=== PATIENT | male | born 1970 | race American Indian/Alaskan Native ===

== ENCOUNTER 2020-01-25 18:30 | Emergency (ER) | payer BC, OTHER ==
[2020-01-25 20:02] LABS: ANION GAP 11.3 mEq/L (7-13); CHLORIDE,CL 107 mmol/L (98-107); SODIUM,NA 143 mmol/L (136-145)
--- NOTE | 2020-01-25 21:13 | EDM.PDOC ---
ED HPI GENERAL MEDICAL PROBLEM - General Chief Complaint: Gastrointestinal Problem Stated Complaint: PAIN UNDER STERNUM, PASSED OUT FROM SEVERE PAIN Time Seen by Provider: 01/25/20 20:15 Source of Information: Reports: Patient, RN History Limitations: Reports: No Limitations - History of Present Illness INITIAL COMMENTS - FREE TEXT/NARRATIVE: 49 year old with PMH of HTN and new diabetes diagnosis who present to the ER with complaints of epigastric pain. He reports symptoms began about one hour prior to ER visit. He states he was faint and diaphoretic with the epigastric pain. When he burped, his epigastric pain resolved. He states he came in for an evaluation because he was diaphoretic. Denies any history of angina or CT. Denies CP, SOB, fevers, chills, and palpitations. States he has had two episode similar to what happened today and just had to lay down for a while for it to resolved. Today he tried and it did not, but burping helped. denies any diarrhea, constipation, N/V or bloody stools. - Related Data Allergies Allergy/AdvReac Type Severity Reaction Status Date / Time No Known Allergies Allergy Verified 01/25/20 19:19 Home Meds: Home Meds lisinopriL [Prinivil] 20 mg PO DAILY 01/25/20 [History] Past Medical History Cardiovascular History: Reports: High Cholesterol, Hypertension Gastrointestinal History: Reports: Cholelithiasis - Past Surgical History GI Surgical History: Reports: Cholecystectomy Social & Family History - Family History Family Medical History: Noncontributory - Tobacco Use Smoking Status *Q: Never Smoker - Caffeine Use Caffeine Use: Reports: Coffee - Recreational Drug Use Recreational Drug Use: No ED ROS GENERAL - Review of Systems Review Of Systems: Comprehensive ROS is negative, except as noted in HPI. ED EXAM, GI/ABD - Physical Exam Exam: See Below Exam Limited By: No Limitations General Appearance: Alert, WD/WN, No Apparent Distress Throat/Mouth: Normal Inspection, Normal Lips, Normal Teeth, Normal Gums, Normal Oropharynx, Normal Voice, No Airway Compromise Neck: Normal Inspection, Supple, Non-Tender, Full Range of Motion Respiratory/Chest: No Respiratory Distress, Lungs Clear, Normal Breath Sounds, No Accessory Muscle Use, Chest Non-Tender Cardiovascular: Normal Peripheral Pulses, Regular Rate, Rhythm, No Edema, No Gallop, No JVD, No Murmur, No Rub GI/Abdominal Exam: Normal Bowel Sounds (Male) Exam: Deferred Rectal (Males) Exam: Deferred Back Exam: Normal Inspection Extremities: Normal Inspection, Normal Range of Motion, Non-Tender, No Pedal Edema Neurological: Alert, Oriented Psychiatric: Normal Affect, Normal Mood Skin Exam: Warm Lymphatic: No Adenopathy Course - Vital Signs Last Recorded V/S: Last Vital Signs Temp 98.1 F 01/25/20 19:33 Pulse 88 01/25/20 19:33 Resp 18 01/25/20 19:33 BP 133/92 H 01/25/20 19:33 Pulse Ox 100 01/25/20 19:33 - Orders/Labs/Meds Orders: Active Orders 24 hr Category Date Time Status EKG Documentation Completion [RC] ROUTINE Care 01/25/20 19:25 Active Labs: Laboratory Tests 01/25/20 01/25/20 Range/Units 19:35 19:35 WBC 7.4 (5.0-10.0) 10^3/uL RBC 4.74 (4.6-6.2) 10^6/uL Hgb 13.9 L (14.0-18.0) g/dL Hct 42.5 (40.0-54.0) % MCV 89.7 (80-100) fL MCH 29.3 (27.0-34.0) pg MCHC 32.7 L (33.0-35.0) g/dL Plt Count 180 (150-450) 10^3/uL Sodium 143 (136-145) mmol/L Potassium 4.3 (3.5-5.1) mmol/L Chloride 107 (98-107) mmol/L Carbon Dioxide 29 (21-32) mmol/L Anion Gap 11.3 (7-13) mEq/L BUN 21 H (7-18) mg/dL Creatinine 1.37 H (0.70-1.30) mg/dL Est Cr Clr Drug Dosing 74.52 mL/min Estimated GFR (MDRD) 55 BUN/Creatinine Ratio 15.3 (No establ ref range) Glucose 99 (74-99) mg/dL Calcium 8.7 (8.5-10.1) mg/dL Total Bilirubin 1.2 H (0.2-1.0) mg/dL AST 28 (15-37) U/L ALT 29 (16-63) U/L Alkaline Phosphatase 51 (46-116) U/L Troponin I < 0.017 (0.000-0.056) ng/mL Total Protein 7.5 (6.4-8.2) g/dL Albumin 4.1 (3.4-5.0) g/dL Globulin 3.4 Albumin/Globulin Ratio 1.2 Amylase 41 (25-115) U/L Lipase 82 (73-393) U/L - Re-Assessments/Exams Free Text/Narrative Re-Assessment/Exam: Review exam findings, labs and ekg results with Patient. He denies having any pain at this time. Encouraged to follow up with PCP for kidney reassessment. Departure - Departure Time of Disposition: 21:04 Disposition: Home, Self-Care 01 Condition: Good Clinical Impression: GERD (gastroesophageal reflux disease) Qualifiers: Esophagitis presence: without esophagitis Qualified Code(s): K21.9 - Gastro- esophageal reflux disease without esophagitis - Discharge Information Instructions: Food Choices for Gastroesophageal Reflux Disease, Adult, [id number] Additional Instructions: Encouraged to pickup Tums for acid reflux. follow up with PCP for kidney exam recheck. Sepsis Event Note (ED) - Evaluation Sepsis Screening Result: No Definite Risk - Focused Exam Vital Signs: Vital Signs Temp Pulse Resp BP Pulse Ox 01/25/20 19:33 98.1 F 88 18 133/92 H 100 - My Orders Last 24 Hours: My Active Orders 01/25/20 19:25 EKG Documentation Completion [RC] ROUTINE - Assessment/Plan Last 24 Hours: My Active Orders 01/25/20 19:25 EKG Documentation Completion [RC] ROUTINE
== END 2020-01-25 21:13 | disposition home or self-care (01) ==
LOC: DL.ED 18:30
DX: K21.9 Gastro-esophageal reflux disease without esophagitis (principal); I10 Essential (primary) hypertension; E11.9 Type 2 diabetes mellitus without complications; Z79.899 Other long term (current) drug therapy
CPT/HCPCS: 36415; 80053; 82150; 83690; 84484; 85027; 93005; 99284-25

== ENCOUNTER 2020-04-22 18:22 | Observation (INO) | payer OTHER, BC ==
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
[2020-04-22] MEDS ORDERED: fentaNYL 100 MCG/2 ML SDV IVPUSH ONE ×2 (18:56→19:26)
[2020-04-22 19:09] LABS: ANION GAP 13.3 mEq/L (7-13); CHLORIDE,CL 101 mmol/L (98-107); SODIUM,NA 140 mmol/L (136-145)
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
[2020-04-22] MEDS ORDERED: Sodium Chloride 0.9% 1,000 ML IV ONE (19:49)
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
[2020-04-22] MEDS ORDERED: Ondansetron 4 MG/2 ML SDV IVPUSH PRN (21:25)
[2020-04-22] MEDS ORDERED: Ondansetron 4 MG Tab.DIS PO PRN (21:25)
[2020-04-22] MEDS ORDERED: Morphine 2 MG/ML SYRINGE IVPUSH PRN (21:25)
[2020-04-22] MEDS ORDERED: Acetaminophen 325 MG Tab PO PRN (21:25)
[2020-04-22] MEDS ORDERED: Ibuprofen 600 MG Tab PO PRN (21:25)
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
[2020-04-22] MEDS: oxyCODONE 5 MG Tab PO PRN (22:03)
[2020-04-23 06:34] LABS: ANION GAP 11.8 mEq/L (7-13); CHLORIDE,CL 104 mmol/L (98-107); SODIUM,NA 138 mmol/L (136-145)
[2020-04-23] MEDS: oxyCODONE 5 MG Tab PO PRN (08:02)
[2020-04-23] MEDS ORDERED: Iopamidol 612 MG/ML 100 ML Bottle IVPUSH ONE (08:54)
[2020-04-23] MEDS ORDERED: Lisinopril 20 MG Tab PO SCH (09:00)
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
== END 2020-04-23 10:47 | disposition home or self-care (01) ==
LOC: DL.ED 18:22 → DL.MS 20:31
PROVIDERS: ADMIT Internal Medicine; ATTEND Internal Medicine
DX: R52 Pain, unspecified (principal); S22.31XA Fracture of one rib, right side, initial encounter for closed fracture; J98.11 Atelectasis; V86.59XA Driver of other special all-terrain or other off-road motor vehicle injured in nontraffic accident, initial encounter; I10 Essential (primary) hypertension; Z20.828 Contact with and (suspected) exposure to other viral communicable diseases
CPT/HCPCS: 36415; 70450; 71045; 71260; 72125; 72170; 80048; 80053; 80305; 80307; 81001; 82550; 82553; 83605; 83735; 84100; 85025; 85027; 87635; 93005; 96374; 96376; 99285; A9270; J3010; J7030; Q9967; G0378; U0002

== ENCOUNTER 2022-02-27 18:01 | Emergency (ER) | payer BC, OTHER | END 2022-02-27 20:21 | disposition home or self-care (01) | LOC: DL.ED 18:01 | DX: S61.214A Laceration without foreign body of right ring finger without damage to nail, initial encounter (principal); W26.8XXA Contact with other sharp object(s), not elsewhere classified, initial encounter; Z23 Encounter for immunization | CPT/HCPCS: 12002; 90471; 99282-25 ==

== ENCOUNTER 2022-06-17 20:42 | Emergency (ER) | payer BC, OTHER ==
[2022-06-17] MEDS ORDERED: Sodium Chloride 0.9% 10 ML Syringe FLUSH PRN (21:07)
[2022-06-17 21:44] LABS: ANION GAP 7.4 mEq/L (7-13); CHLORIDE,CL 106 mmol/L (98-107); SODIUM,NA 143 mmol/L (136-145)
[2022-06-17 21:45] LABS: ESTIMATED GFR 65 mL/min (>=60)
[2022-06-17] MEDS ORDERED: Sodium Chloride 0.9% 1,000 ML IV ONE ×2 (21:51→22:35)
[2022-06-17] MEDS ORDERED: Aspirin 81 MG Tab.Chew PO ONE (21:52)
[2022-06-17 23:39] LABS: CORONAVIRUS COVID-19 NAA NEGATIVE (NEGATIVE); RESPIRATORY SYNCYTIAL VIR NAA NEGATIVE (NEGATIVE)
[2022-06-17 23:49] LABS: ANION GAP 9.8 mEq/L (7-13)
== END 2022-06-18 00:18 | disposition home or self-care (01) ==
LOC: DL.ED 20:42
DX: E86.0 Dehydration (principal); R77.8 Other specified abnormalities of plasma proteins; I10 Essential (primary) hypertension; Z79.899 Other long term (current) drug therapy; Z20.822 Contact with and (suspected) exposure to COVID-19
CPT/HCPCS: 0241U; 36415; 70450; 80053; 83735; 84100; 84484; 85025; 86140; 93005; 96360; 96361; 99285; A9270; J3490; J7030; 93010; 99284

== ENCOUNTER 2022-09-28 05:45 | Day surgery (SDC) | payer BC, OTHER ==
[~2022-09-28 05:45] MED LIST: Dextrose 5%-0.45% NaCl 1,000 ML IV SCH; Sodium Chloride 0.9% 10 ML Syringe FLUSH PRN; Sodium Chloride 0.9% 10 ML Syringe FLUSH SCH
[2022-09-28] MEDS ORDERED: fentaNYL 100 MCG/2 ML SDV IV ONE ×3 (05:46→06:57)
[2022-09-28] MEDS ORDERED: Midazolam 1 MG/ML 2 ML SDV IV ONE ×7 (05:46→07:07)
[2022-09-28] MEDS ORDERED: Dextrose 5%-0.45% NaCl 1,000 ML IV SCH (06:00)
[2022-09-28] MEDS ORDERED: fentaNYL 100 MCG/2 ML SDV ONE (06:02)
[2022-09-28] MEDS ORDERED: Midazolam 1 MG/ML 2 ML SDV ONE (06:02)
== END 2022-09-28 08:36 | disposition home or self-care (01) ==
LOC: DL.ENDO 05:45
PROVIDERS: ATTEND Internal Medicine Gastroenterology
DX: Z12.11 Encounter for screening for malignant neoplasm of colon (principal); D12.8 Benign neoplasm of rectum; K57.30 Diverticulosis of large intestine without perforation or abscess without bleeding; I10 Essential (primary) hypertension; R73.9 Hyperglycemia, unspecified; Z90.09 Acquired absence of other part of head and neck; Z90.49 Acquired absence of other specified parts of digestive tract
CPT/HCPCS: J2250; J3010; J7042

== ENCOUNTER 2022-11-08 04:46 | Emergency (ER) | payer BC, OTHER | END 2022-11-08 05:50 | disposition home or self-care (01) | LOC: DL.ED 04:46 | DX: J02.9 Acute pharyngitis, unspecified (principal); I10 Essential (primary) hypertension; Z86.16 Personal history of COVID-19; Z79.899 Other long term (current) drug therapy | CPT/HCPCS: 87081; 87430; 99283 ==

== ENCOUNTER 2025-02-15 04:40 | Emergency (ER) | payer BC, OTHER ==
[2025-02-15 05:15] LABS: BASOPHILS PERCENT AUTO 0.2 % (0.0-1.0); EOSINOPHILS PERCENT AUTO 2.8 % (1.0-3.0); LYMPHOCYTES PERCENT AUTO 11.6 % (20.5-50.1); MONOCYTES PERCENT AUTO 8.0 % (2-8); NEUTROPHILS PERCENT AUTO 77.4 % (42.2-75.2); PLATELET COUNT,PLT 211 10^3/uL (150-450); RED BLOOD CELL COUNT 4.72 10^6/uL (4.6-6.2); WHITE BLOOD CELL COUNT,WBC 11.9 10^3/uL (5.0-10.0)
[2025-02-15 05:30] LABS: A/G RATIO 1.1; ALANINE AMINOTRANSFERASE,ALT 22.0 U/L (16-63); ASPARTATE AMNIOTRANSFERASE,AST 18.0 U/L (15-37); BILIRUBIN TOTAL 1.0 mg/dL (0.2-1.0); BLOOD UREA NITROGEN,BUN 14.0 mg/dL (7-18); CARBON DIOXIDE,CO2 32.0 mmol/L (21-32); CHLORIDE,CL 103.0 mmol/L (98-107); CREATININE 0.94 mg/dL (0.70-1.30); EST CRCL DRUG DOSING (CG) 102.71 mL/min; ESTIMATED GFR 97.0 mL/min (>=60); GLUCOSE RANDOM 116.0 mg/dL (70-99); POTASSIUM,K 3.9 mmol/L (3.5-5.1); PROTEIN TOTAL,TP 7.5 g/dL (6.4-8.2); SODIUM,NA 142.0 mmol/L (136-145)
== END 2025-02-15 06:02 | disposition home or self-care (01) ==
LOC: DL.ED 04:40
DX: J06.9 Acute upper respiratory infection, unspecified (principal); I10 Essential (primary) hypertension; Z86.16 Personal history of COVID-19; Z79.899 Other long term (current) drug therapy
CPT/HCPCS: 36415; 71046; 80053; 85025; 87081; 87430; 99283